=== PATIENT | male | born 1980 | race Caucasian/White ===

== ENCOUNTER 2021-10-07 23:54 | Emergency (ER) | payer OTHER | END 2021-10-08 03:12 | disposition home or self-care (01) | LOC: ER1 23:54 | DX: U07.1 COVID-19 (principal); E11.9 Type 2 diabetes mellitus without complications; Z79.84 Long term (current) use of oral hypoglycemic drugs | CPT/HCPCS: 0240U; 99283 ==

== ENCOUNTER 2021-10-13 18:11 | Emergency (ER) | payer OTHER ==
[2021-10-13 19:47] LABS: HEMOGLOBIN 15.5 gm/dl (14.0-17.5); RED BLOOD COUNT 5.26 M/UL (4.20-5.50)
[2021-10-13 20:18] LABS: BUN/CREATININE RATIO 19 (0-10)
[2021-10-13] MEDS ORDERED: ZOFRAN 4 MG TAB4 MG PO (20:37)
== END 2021-10-13 21:00 | disposition home or self-care (01) ==
LOC: ER1 18:11
PROVIDERS: Physician Assistant
DX: U07.1 COVID-19 (principal); E11.9 Type 2 diabetes mellitus without complications
CPT/HCPCS: 80053; 85025; 96374; 99284; J2405